=== PATIENT | male | born 1970 | race African-American/Black ===

== ENCOUNTER 2023-04-17 03:05 | Outpatient (CLI) | payer MEDICAID, SELFPAY ==
[2023-04-17 09:30] LABS: Abs Immature Grans 0.01 10^3/uL (0.0-0.06); Absolute Basophil Count 0.03 10^3/uL (0.0-0.2); Absolute Eosinophil Count 0.23 10^3/uL (0.0-0.7); Absolute Lymphocyte Count 0.76 10^3/uL (1.2-3.4); Absolute Neutrophil Count 3.08 10^3/uL (1.2-6.7); Basophils % 0.7; Eosinophils % 5.1; HCT 45.8 % (40.0-50.0); Immature Grans % 0.2; Lymphocytes % 16.9; MCH 27.9 pg (27.0-33.0); MCHC 32.8 % (32.0-36.0); MCV 85 fL (80-95); MPV 10.3 fL (8.0-11.0); Monocytes % 8.9; Neutrophils % 68.2; Platelet Count 170 10^3/uL (130-400); RBC 5.38 10^6/uL (4.36-5.78); RDW 14.3 % (11.8-14.1); RDW-SD 44.7 fL; WBC 4.51 10^3/uL (4.4-10.8)
[2023-04-17 09:56] LABS: ALT 67 U/L (16-63); AST 59 U/L (15-37); Albumin 4.4 g/dL (3.4-5.0); Alkaline Phosphatase 74 U/L (46-116); Anion Gap 8.6 mmol/L (3-11); BUN 10 mg/dL (7-18); Bilirubin, Total 0.9 mg/dL (0.2-1.0); CO2 29.4 mmol/L (21.0-32.0); CREATININE 1.6 mg/dL (0.70-1.30); Calcium 9.1 mg/dL (8.5-10.1); Calculated LDL 98 mg/dL (<100); Chloride 103 mmol/L (98-107); Cholesterol 188 mg/dL (<200); Estimated GFR 51.84 (mL/min/1.73m2); Glucose 127 mg/dL (74-106); HDL Cholesterol 64 mg/dL (40-60); Sodium 141 mmol/L (136-145); Total Protein 7.8 g/dL (6.4-8.2); Triglyceride 133 mg/dL (<150)
[2023-04-17 10:07] LABS: Uric Acid 8.3 mg/dL (3.5-7.2)
== END 2023-04-17 03:06 | disposition home or self-care (01) ==
LOC: LBO 03:05
PROVIDERS: Absent Provider Family Medicine; PCP Family Medicine; Referring Provider Family Medicine; Visit Provider Family Medicine
DX: N18.1 Chronic kidney disease, stage 1 (principal); I25.2 Old myocardial infarction; D69.6 Thrombocytopenia, unspecified; M1A.9XX0 Chronic gout, unspecified, without tophus (tophi)
CPT/HCPCS: 36415; 80053; 80061; 84550; 85025

== ENCOUNTER → 2023-09-09 04:55 | Outpatient (CLI) | payer MEDICAID, SELFPAY ==
--- NOTE | 2023-09-09 09:05 | DI.MRI_ITS ---
Exam(s) MR LUMBAR SPINE WO EXAM: MR LUMBAR SPINE WO CLINICAL HISTORY: Facet arthropathy seen on xray,low back pain, m54.50. TECHNIQUE: Multiplanar multisequence MRI of the Lumbar spine was performed. COMPARISON: No exams were available for comparison FINDINGS: Bones: The last intervertebral disc space is designated the L5/S1 level for the numbering purpose of this ex amination. The vertebral body heights are well maintained. Alignment: Unremarkable. The marrow signal characteristics are unremarkable. A large amount of epidural fat central canal. Findings are greater at L4-5 and S1. Cord: The conus tip ends at the T12 level. It is of normal size and signal intensity. T12-L1: No focal disc herniation is present. No central spinal canal stenosis.No neural foraminal st enosis. L1-2: No focal disc herniation is present. No central spinal canal stenosis.No neural foraminal sten osis. L2-3: No focal disc herniation is present. No central spinal canal stenosis.No neural foraminal bharath nosis. L3-4: No focal disc herniation is present. No central spinal canal stenosis.No neural foraminal bharath nosis. L4-5:Partial disc desiccation. Disc height normal. Small central disc protrusion. Mild facet degen erative changes. No central spinal canal stenosis.No neural foraminal stenosis. L5-S1: Partial disc desiccation. Small focal central disc protrusion. No central spinal canal sten osis.No neural foraminal stenosis. The visualized SI joints and sacrum are unremarkable. Soft tissues: The paraspinal soft tissues are unremarkable. IMPRESSION: Small central disc protrusions at L4-5 and L5-S1 without significant encroachment into the canal or d efinite nerve root impingement. Abundant epidural fat noted from L4-5 through L5-S1. No evidence of significant spinal stenosis or neuroforaminal narrowing. DATA REPOSITORY:
== END ==
PROVIDERS: PCP Family Medicine; Visit Provider Family Medicine
DX: M51.37 Other intervertebral disc degeneration, lumbosacral region (principal)
CPT/HCPCS: 72148

== ENCOUNTER 2024-01-25 02:37 | Outpatient (CLI) | payer MEDICAID, SELFPAY ==
--- NOTE | 2024-01-25 07:45 | DI.MRI_ITS ---
Exam(s) MR BRAIN WO EXAM: MR BRAIN WO CLINICAL HISTORY: MS, clinically stable, MULTIPLE SCLEROSIS, G35 TECHNIQUE: Multiplanar multisequence MRI of the brain was performed. COMPARISON: MR MR Brain W WO from 07/24/2020 MR MR Brain W WO from 02/12/2021 MR MR Brain W WO from 10/24/2021 MR MR Brain W WO from 08/11/2022 FINDINGS: The examination is limited due to patient motion artifact. VENTRICLES AND EXTRA AXIAL SPACES: Normal in size and morphology for the patient's age. MIDLINE SHIFT: None. CEREBRAL PARENCHYMA: No focus of restricted diffusion to suggest acute infarct. There are stable foci of hyperintense signal seen in the periventricular white matter on the FLAIR and T2 weighted images. These are unchanged. HEMORRHAGE: None. BRAINSTEM/CEREBELLUM: Normal. CALVARIUM: Normal. VISUALIZED PARANASAL SINUSES/MASTOIDS:There is again seen a small mucous retention cyst or polyp in t he left sphenoid sinus. [place]: Normal flow void. PITUITARY GLAND: Unremarkable. OTHER FINDINGS: None. IMPRESSION: Unchanged white matter lesions in the periventricular white matter. DATA REPOSITORY:
== END 2024-01-25 02:57 ==
LOC: DI 02:38
PROVIDERS: PCP Family Medicine; Visit Provider Psychiatry & Neurology Neurology
DX: G35 Multiple sclerosis (principal)
CPT/HCPCS: 70551

== ENCOUNTER 2024-01-29 09:16 | Outpatient (CLI) | payer MEDICAID, SELFPAY ==
--- NOTE | 2024-01-29 09:15 | RT.EKG_ITS ---
APPROVED REPORT Exam: Resting ECG Reason for Exam: Bradycardia Patient Location: O HR:53 bpm ECG Measurements Heart Rate 53 AXIS HI 158 P 55 QRSd 97 QRS 46 QT 411 T 60 QTc 386 Conclusion Sinus rhythm...normal P axis, V-rate 50- 99 Probable left ventricular hypertrophy...multiple LVH criteria
== END 2024-01-29 09:17 | disposition home or self-care (01) ==
PROVIDERS: PCP Family Medicine; Visit Provider Psychiatry & Neurology Neurology
DX: G35 Multiple sclerosis (principal)
CPT/HCPCS: 93005; 93010

== ENCOUNTER 2024-03-15 07:50 | Outpatient (CLI) | payer MEDICAID, SELFPAY ==
--- NOTE | 2024-03-15 07:45 | RT.EKG_ITS ---
APPROVED REPORT Exam: Resting ECG Reason for Exam: CAD Patient Location: O HR:50 bpm ECG Measurements Heart Rate 50 AXIS MO 168 P 56 QRSd 95 QRS 36 QT 430 T 33 QTc 393 Conclusion Sinus rhythm...normal P axis, V-rate 50- 99 Normal Electrocardiogram
== END 2024-03-15 07:51 | disposition home or self-care (01) ==
LOC: DI.CARD 07:51
PROVIDERS: PCP Family Medicine; Visit Provider Internal Medicine Cardiovascular Disease
DX: I25.10 Atherosclerotic heart disease of native coronary artery without angina pectoris (principal)
CPT/HCPCS: 93010